=== PATIENT | female | born 1960 | race Caucasian/White ===

== ENCOUNTER 2016-12-06 15:07 | Emergency (ER) | payer MEDICARE, OTHER ==
[2016-12-06 16:19] VITALS: BMI 43.6
[2016-12-06 16:25] VITALS: RESP 18
--- NOTE | 2016-12-06 17:20 | C.PDOC ---
History Of Present Illness 56 y/o female, whose PMHx includes Arthritis, Back Problems (Chronic), and Osteoporosis, is sent to the ED by PMD for full evaluation s/p fall. Patient reports that she tripped and fell down two stairs, three days ago, and she is now complaining of pain to the left fourth and fifth finger and pain to the left hip. She states that at the time she felt dazed but she was able to walk. Notes that she is afraid to come to the hospital but her PMD told her to. Patient states the pain is worse with movement. Denies taking any OTC medication for pain. Denies any head injury, loss of consciousness, weakness, numbness, or other complaints. - HPI Time Seen by Provider: 12/06/16 17:04 Chief Complaint (Nursing): Back Pain History Per: Patient History/Exam Limitations: no limitations Onset/Duration Of Symptoms: Days (3), Sudden Onset, Persistent Injury Occurred (Timing): Days Ago: (3) Recent travel outside of the [place]: No Past Medical History Reviewed: Historical Data, Nursing Documentation, Vital Signs Vital Signs: Last Vital Signs Temp 98 F 12/06/16 16:19 Pulse 83 12/06/16 17:22 Resp 18 12/06/16 17:22 BP 124/82 12/06/16 17:22 Pulse Ox 96 12/06/16 17:44 - Medical History PMH: Anxiety, Arthritis, Asthma, Back Problems (Chronic), Bipolar Disorder, Depression, HTN, Osteoporosis, Seizures Surgical History: - [facility] Procedures INSPECTION OF LARYNX, ENDO (11/19/15) INTRODUCE OF OTH THERAP SUBST INTO RESP TRACT, VIA OPENING (11/19/15) INTRODUCTION OF ANTI-INFLAMMATORY INTO JOINTS, PERC APPROACH (01/28/16) INTRODUCTION OF SERUM/TOX/VACCINE INTO MUSCLE, PERC APPROACH (11/19/15) Family History: States: Unknown Family Hx - Social History Hx Tobacco Use: No Hx Alcohol Use: No Hx Substance Use: No - Immunization History Hx Tetanus Toxoid Vaccination: Yes Hx Influenza Vaccination: Yes Hx Pneumococcal Vaccination: Yes Review Of Systems Except As Marked, All Systems Reviewed And Found Negative. Musculoskeletal: Positive for: Other (left hip pain and left fourth and fifth finger pain) Neurological: Negative for: Weakness, Numbness, Other (LOC) Physical Exam - Physical Exam Appears: Non-toxic, No Acute Distress Skin: Warm, Dry Head: Atraumatic, Normacephalic Eye(s): bilateral: Normal Inspection, PERRL, EOMI Neck: Normal ROM, No Midline Cervical Tenderness, Supple Chest: Symmetrical, No Tenderness Cardiovascular: Rhythm Regular Respiratory: Normal Breath Sounds, No Rales, No Rhonchi, No Wheezing Gastrointestinal/Abdominal: Normal Exam, Soft, No Tenderness Back: Normal Inspection, No Vertebral Tenderness Extremity: Tenderness (mild soft tissue tenderness to left fourth and fifth fingers; no other tenderness to b/l upper or lower extremities), No Deformity, No Swelling, Other (ecchymosis to left fourth finger) Neurological/Psych: Oriented x3, Normal Speech, Normal Cognition, Normal Motor, Normal Sensation Gait: Other (limping due to left hip pain) ED Course And Treatment O2 Sat by Pulse Oximetry: 96 (ra) Pulse Ox Interpretation: Normal - Other Rad L HAND X-Ray: Interpreted by Me (NEG) L HIP X-Ray: Interpreted by Me (NEG) Medical Decision Making Medical Decision Making: Plan: * X-Ray, Left Hand * X-Ray, Left Hip * Naproxen PO Disposition Counseled Patient/Family Regarding: Studies Performed, Diagnosis, Need For Followup, Rx Given - Disposition Referrals: YOUR,PMD [Other] Disposition: HOME/ ROUTINE Disposition Time: 17:55 Condition: IMPROVED Prescriptions: Naproxen 500 mg PO BID #30 tab Instructions: Finger Sprain (ED), Hip Contusion (ED) - Clinical Impression Clinical Impression: Finger contusion, Contusion, hip, Finger sprain, Fall (on) (from) other stairs and steps, initial encounter - Scribe Statement The provider has reviewed the documentation as recorded by the Scribe (Renea Trent) Provider Attestation: All medical record entries made by the Scribe were at my direction and personally dictated by me. I have reviewed the chart and agree that the record accurately reflects my personal performance of the history, physical exam, medical decision making, and the department course for this patient. I have also personally directed, reviewed, and agree with the discharge instructions and disposition. Orthopedic Care Application Of:: Finger Splint
[2016-12-06] MEDS ORDERED: Naproxen 550 mg Tab PO STA (17:21)
[2016-12-06] MEDS ORDERED: Naproxen 550 mg Tab PO ONE (17:29)
[2016-12-06 18:12] VITALS: BP 148/92; PULSE 67; TEMP 98.2; O2SAT 99
--- NOTE | 2016-12-07 14:16 | RAD ---
PROCEDURE: Left Hand Radiographs. HISTORY: TRAUMA 4,5 FINGERS COMPARISON: None. FINDINGS: BONES: Bone alignment and mineralization are normal. There is no acute fracture or bone destruction. JOINTS: The joint spaces are preserved. SOFT TISSUES: Normal. OTHER FINDINGS: None. IMPRESSION: No acute fracture or dislocation.
--- NOTE | 2016-12-07 14:34 | RAD ---
PROCEDURE: Radiographs of the pelvis and left hip HISTORY: TRAUMA COMPARISON: 03/18/2014 TECHNIQUE: AP pelvis and frog-lateral view of the left hip were obtained FINDINGS: The pelvic ring is intact. There is no acute fracture or bone destruction the hip joint spaces are preserved. Both sacroiliac joints are normal. There is mild osteitis pubis. IMPRESSION: No acute fracture or dislocation.
== END 2016-12-06 18:29 | disposition home or self-care (01) ==
LOC: C.ER 15:07
DX: S63.615A Unspecified sprain of left ring finger, initial encounter (principal); S70.02XA Contusion of left hip, initial encounter; W10.9XXA Fall (on) (from) unspecified stairs and steps, initial encounter

== ENCOUNTER 2017-08-01 09:13 | Day surgery (SDC) | payer MEDICARE, OTHER ==
[2017-07-05 11:01] VITALS: BMI 47.5
[2017-08-01] MEDS ORDERED: Lactated Ringer's 1,000 ML IV ONE (12:08)
[2017-08-01] MEDS ORDERED: Midazolam 2 MG/2 ML VIAL ONE (12:17)
[2017-08-01] MEDS ORDERED: Propofol 10 mg/ml Inj (20 ML) ONE (12:17)
--- NOTE | 2017-08-01 12:43 | PCM.SURG1 ---
Surgeon's Initial Post Op Note - Surgeon's Notes Surgeon: Dr. Bustos [employer] Manager: None Type of Anesthesia: General LMA Anesthesia Administered By: Dr. Storm Pre-Operative Diagnosis: 57 yo with Stenotic os , Postmenopausal bleeding Operative Findings: AV uterus stenotic os Post-Operative Diagnosis: Same as above Operation Performed: Fractional D and C, attempted Hysteroscopy myosure Specimen/Specimens Removed: ECC,EMC Estimated Blood Loss: EBL {In ML}: 5 Blood Products Given: N/A Drains Used: No Drains Post-Op Condition: Good Date of Surgery/Procedure: 08/01/17 Time of Surgery/Procedure: 12:43
[2017-08-01] MEDS ORDERED: HYDROmorphone 0.5 mg/0.5 ml ISec IVP PRN (12:48)
[2017-08-01] MEDS ORDERED: HYDROmorphone 0.5 mg/0.5 ml ISec ONE (12:49)
[2017-08-01 14:15] VITALS: PULSE 82
[2017-08-01 14:50] VITALS: BP 114/72; RESP 14; TEMP 97; O2SAT 96
--- NOTE | 2017-08-01 23:24 | OP ---
PROCEDURE DATE: PREOPERATIVE DIAGNOSIS: A 57-year-old female with postmenopausal bleeding and stenotic os. POSTOPERATIVE DIAGNOSIS: A 57-year-old female with postmenopausal bleeding and stenotic os. PROCEDURE: Fractional dilatation and curettage, attempted hysteroscopy and MyoSure. SURGEON: Molly Bustos MD ANESTHESIA ADMINISTERED BY: Dr. Powers TYPE OF ANESTHESIA: General LMA. FINDINGS: An anteverted uterus noted to have a stenotic os, approximately 15 weeks of gestation. COMPLICATION: None. ESTIMATED BLOOD LOSS: 10 mL. IV FLUID INTAKE: 400 mL. SPECIMEN: EMC and ECC. DESCRIPTION OF PROCEDURE: The patient was informed of the risk factors, benefits, and alternative of the procedure. Risk factors included infection, bleeding, damages to surrounding organ and tissue, complications from anesthesia, and possible . After informed consent was obtained, she was then taken to the operating room, prepped and draped in normal sterile fashion, placed in dorsal lithotomy position. A weighted-speculum was placed into the vagina. The anterior lip of the cervix was grasped with a single-toothed tenaculum. The uterus was gently sounded to approximately, may be, 8 cm. Her os was really stenotic and extremely hard to go in. Due to that fact, the hysteroscopy and MyoSure were attempted, but unsuccessful. A fractional D and C was then performed, in which EMC and ECC were obtained and submitted to pathology. There was scant tissue. Upon completion, all instruments were removed from the vagina. Instruments and lap counts were correct x2. The patient was then taken to the recovery room in stable condition. Molly Bustos MD
== END 2017-08-01 16:12 | disposition home or self-care (01) ==
LOC: C.SDS 09:13
PROVIDERS: ATTEND Obstetrics & Gynecology
DX: N95.0 Postmenopausal bleeding (principal); N85.4 Malposition of uterus; N84.1 Polyp of cervix uteri; N85.00 Endometrial hyperplasia, unspecified
CPT/HCPCS: 58558; J1170; J2250; J2704; J3010; J7120

== ENCOUNTER 2018-08-08 19:00 | Emergency (ER) | payer MEDICARE, MEDICAID ==
[2018-08-08 19:00] VITALS: BMI 50.3
[2018-08-08] MEDS ORDERED: Sodium Chloride 0.9% 1,000 ML IV ONE (20:17)
--- NOTE | 2018-08-08 20:17 | C.PDOC ---
History Of Present Illness Patient presents to the ER with a complaint of nausea, vomiting, and diarrhea worsening over the last 7 days. Patient states everything she eats "runs though her" and she feels like her hands are spasming. Patient had a hysterectomy 4-5 months ago. Denies fever or chills. Time Seen by Provider: 08/08/18 19:59 Chief Complaint (Nursing): Abdominal Pain History Per: Patient History/Exam Limitations: no limitations Onset/Duration Of Symptoms: Days (7) Current Symptoms Are (Timing): Still Present Severity: Moderate Pain Scale Rating Of: 5 Quality Of Discomfort: Unable To Describe Associated Symptoms: Nausea, Vomiting, Diarrhea, Other (Hands spasming). denies: Fever, Chills Exacerbating Factors: None Alleviating Factors: None Recent travel outside of the [place]: No Abnormal Vaginal Bleeding: No Past Medical History Reviewed: Historical Data, Nursing Documentation, Vital Signs Vital Signs: Last Vital Signs Temp 98 F 08/08/18 19:06 Pulse 105 H 08/08/18 19:06 Resp 21 08/08/18 19:06 BP 123/86 08/08/18 19:06 Pulse Ox 99 08/08/18 19:06 - Medical History PMH: Anxiety, Arthritis (RA), Asthma, Back Problems (Chronic), Bipolar Disorder, COPD, Depression, HTN, Hypercholesterolemia, Osteoporosis, Peripheral Edema, Seizures Denies: CHF, Diabetes, Hepatitis, HIV, Hypothyroidism, Chronic Kidney Disease, Rheumatoid Arthritis Surgical History: Other Surgeries: Hysterectomy - [facility] Procedures INSPECTION OF LARYNX, ENDO (11/19/15) INTRODUCE OF OTH THERAP SUBST INTO RESP TRACT, VIA OPENING (11/19/15) INTRODUCTION OF ANTI-INFLAMMATORY INTO JOINTS, PERC APPROACH (01/28/16) INTRODUCTION OF SERUM/TOX/VACCINE INTO MUSCLE, PERC APPROACH (11/19/15) Family History: States: No Known Family Hx - Social History Hx Tobacco Use: No Hx Alcohol Use: No Hx Substance Use: No - Immunization History Hx Tetanus Toxoid Vaccination: Yes Hx Influenza Vaccination: No Hx Pneumococcal Vaccination: Yes Review Of Systems Constitutional: Negative for: Fever, Chills Cardiovascular: Negative for: Chest Pain, Palpitations Respiratory: Negative for: Cough, Shortness of Breath Gastrointestinal: Positive for: Nausea, Vomiting, Diarrhea Musculoskeletal: Positive for: Other (Hand spasming) Neurological: Negative for: Weakness, Numbness Physical Exam - Physical Exam Appears: Non-toxic Skin: Warm, Dry Head: Normacephalic Oral Mucosa: Moist Neck: Trachea Midline, Supple Chest: Symmetrical, No Tenderness Cardiovascular: Rhythm Regular Respiratory: No Rales, No Rhonchi, No Wheezing Gastrointestinal/Abdominal: Soft, No Tenderness, Other (Obese. Surgical scars clean, dry and well healed.) Back: No CVA Tenderness Extremity: Pedal Edema (Bilateral) Neurological/Psych: Oriented x3 ED Course And Treatment - Laboratory Results Result Diagrams: 08/08/18 20:45 08/08/18 20:45 ECG: Interpreted By Me, Viewed By Me ECG Rhythm: Sinus Rhythm (81), Nonspecific Changes O2 Sat by Pulse Oximetry: 99 (Room air) Pulse Ox Interpretation: Normal - Radiology CXR: Interpreted by Me, Viewed By Me Progress Note: EKG, blood work, and urinalysis ordered. IV fluids, protonix, zofran, and toradol administered. Disposition Counseled Patient/Family Regarding: Studies Performed, Diagnosis, Need For Followup, Rx Given - Disposition Referrals: Shamir Tee MD [Medical Doctor] - Disposition: HOME/ ROUTINE Disposition Time: 20:16 Condition: FAIR Additional Instructions: Please return if symptoms recur. Do take kaopectate for the diarrhea . Return in the morning for a leg doppler(ultrsaound ) test Prescriptions: Ondansetron ODT [Zofran ODT] 1 odt PO BID PRN #6 odt PRN Reason: Nausea/Vomiting Pantoprazole Sodium [Protonix] 40 mg PO DAILY #15 ect Instructions: Nausea and Vomiting, Adult (DC) Forms: [employer] (Fijian) - Clinical Impression Clinical Impression: Diarrhea, Nausea & vomiting, Leg pain - Scribe Statement The provider has reviewed the documentation as recorded by the Scribvadim Prather All medical record entries made by the Scribe were at my direction and personally dictated by me. I have reviewed the chart and agree that the record accurately reflects my personal performance of the history, physical exam, medical decision making, and the department course for this patient. I have also personally directed, reviewed, and agree with the discharge instructions and disposition.
[2018-08-08] MEDS ORDERED: Sodium Chloride 0.9% 1,000 ML ONE (20:43)
[2018-08-08 20:49] LABS: BASO # 0.1 K/uL (0.0-0.2); BASO % 0.8 % (0.0-2.0); EOS # 0.1 K/uL (0.0-0.7); EOS % 0.5 % (0.0-4.0); HEMOGLOBIN 13.8 g/dL (11.0-16.0); LYMPH # 2.8 K/uL (1.0-4.3); LYMPH % 27.7 % (20.0-40.0); MEAN CORPUSCULAR HEMOGLOBIN 29.2 pg (27.0-31.0); MEAN CORPUSCULAR HGB CONC 34.4 g/dL (33.0-37.0); MONO # 0.6 K/uL (0.0-0.8); MONO % 5.8 % (0.0-10.0); NEUT # 6.5 K/uL (1.8-7.0); NEUT % 65.2 % (50.0-75.0); RBC 4.73 Mil/uL (3.80-5.20); RED CELL DISTRIBUTION WIDTH 13.4 % (11.5-14.5)
[2018-08-08 20:49] LABS: SQUAMOUS EPITHIAL 2 /hpf (0-5); URINE BACTERIA RARE (<OCC); URINE BILIRUBIN NEGATIVE (NEGATIVE); URINE BLOOD NEGATIVE (NEGATIVE); URINE CLARITY Clear (Clear); URINE COLOR Yellow (YELLOW); URINE GLUCOSE (UA) NORMAL (Normal); URINE LEUKOCYTE ESTERASE NEG Leu/uL (Negative); URINE PROTEIN NEGATIVE (NEGATIVE); URINE UROBILINOGEN NORMAL mg/dL (0.2-1.0)
[2018-08-08 20:51] LABS: MEAN CELL VOLUME 84.8 fL (81.0-99.0)
[2018-08-08 20:56] LABS: INR 1.1; PROTHROMBIN TIME 12.2 SECONDS (9.7-12.2)
[2018-08-08 21:07] LABS: ALB/GLOB RATIO 1.2 (1.0-2.1); ALBUMIN 4.2 g/dL (3.5-5.0); ALT/SGPT 33 U/L (9-52); AST/SGOT 24 U/L (14-36); BLOOD UREA NITROGEN 15 mg/dL (7-17); CALCIUM 9.7 mg/dl (8.6-10.4); GFR NON-AFRICAN AMERICAN > 60; LIPASE 75 U/L (23-300)
[2018-08-08 21:15] LABS: B-TYPE NATRIURETIC PEPTIDE 43.4 pg/mL (0-900)
[2018-08-08] MEDS ORDERED: Enoxaparin 40 mg Syringe SC STA (22:30)
[2018-08-08] MEDS ORDERED: Enoxaparin 120 mg Syringe SC STA (22:42)
[2018-08-08 22:50] VITALS: BP 106/70; PULSE 83; RESP 17; TEMP 98.4; O2SAT 95
--- NOTE | 2018-08-10 07:27 | CARD ---
APPROVED REPORT Date of service: 08/08/2018 EKG Measurement Heart [id number] <Conclusion> Normal sinus rhythm Normal ECG
== END 2018-08-08 22:57 | disposition home or self-care (01) ==
LOC: C.ER 19:00
DX: R11.2 Nausea with vomiting, unspecified (principal); R19.7 Diarrhea, unspecified; M79.606 Pain in leg, unspecified
CPT/HCPCS: 80053; 81001; 83690; 83880; 85025; 85610; 85730; 93005; 96361; 96372; 96374; 96375; 99284; C9113; J1650; J1885; J2405; J7030

== ENCOUNTER 2018-08-19 00:20 | Emergency (ER) | payer MEDICARE, OTHER ==
[2018-08-19 00:21] VITALS: BMI 50.3
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
[2018-08-19 03:15] VITALS: BP 119/86; PULSE 86; RESP 16; TEMP 98.6
[2018-08-19 03:46] VITALS: O2SAT 96
== END 2018-08-19 03:15 | disposition home or self-care (01) ==
LOC: C.ER 00:20
DX: S00.83XA Contusion of other part of head, initial encounter (principal); Y04.0XXA Assault by unarmed brawl or fight, initial encounter; M54.9 Dorsalgia, unspecified
CPT/HCPCS: 96372; 99283; J1885

== ENCOUNTER 2018-08-28 18:26 | Emergency (ER) | payer MEDICARE, OTHER ==
[2018-08-28 18:26] VITALS: BMI 50.3
[2018-08-28 18:55] VITALS: TEMP 98.3
[2018-08-28] MEDS ORDERED: Sodium Chloride 0.9% 1,000 ML IV ONE (19:20)
--- NOTE | 2018-08-28 19:21 | C.PDOC ---
History Of Present Illness 58 year old female presents to the ER with a complaint of an intermittent headache for the past week. Patient has Hx of head injury a week ago, she injured the right temporal/parietal area. Denies nausea or vomiting. Chief Complaint (Nursing): Syncope History Per: Patient History/Exam Limitations: no limitations Onset/Duration Of Symptoms: Days, Intermittent Episodes Current Symptoms Are (Timing): Still Present Seizure Or Post-ictal Symptoms: None Recent travel outside of the [place]: No - Symptoms Of CVA Associated Symptoms: denies: Impaired Speech, Seizure Activity, New Vision Deficit(Left), New Vision Deficit(Right), Decreased Ability To Walk, New Confusion Past Medical History Reviewed: Historical Data, Nursing Documentation, Vital Signs Vital Signs: Last Vital Signs Temp 98.3 F 08/28/18 18:51 Pulse 92 H 08/28/18 18:51 Resp 18 08/28/18 18:51 BP 131/85 08/28/18 18:51 Pulse Ox 97 08/28/18 18:51 - Medical History PMH: Anxiety, Arthritis (RA), Asthma, Back Problems (Chronic), Bipolar Disorder, COPD, Depression, HTN, Hypercholesterolemia, Osteoporosis, Peripheral Edema, Seizures Denies: CHF, Diabetes, Hepatitis, HIV, Hypothyroidism, Chronic Kidney Disease, Rheumatoid Arthritis Surgical History: - [facility] Procedures INSPECTION OF LARYNX, ENDO (11/19/15) INTRODUCE OF OTH THERAP SUBST INTO RESP TRACT, VIA OPENING (11/19/15) INTRODUCTION OF ANTI-INFLAMMATORY INTO JOINTS, PERC APPROACH (01/28/16) INTRODUCTION OF SERUM/TOX/VACCINE INTO MUSCLE, PERC APPROACH (11/19/15) Family History: States: Unknown Family Hx - Social History Hx Tobacco Use: No Hx Alcohol Use: No Hx Substance Use: No - Immunization History Hx Tetanus Toxoid Vaccination: No Hx Influenza Vaccination: Yes Hx Pneumococcal Vaccination: No Review Of Systems Constitutional: Negative for: Fever, Chills Eyes: Negative for: Vision Change Cardiovascular: Negative for: Chest Pain, Palpitations Respiratory: Negative for: Cough, Shortness of Breath Gastrointestinal: Negative for: Nausea, Vomiting Neurological: Positive for: Headache. Negative for: Weakness, Numbness Physical Exam - Physical Exam Appears: Non-toxic, Other (Alert, conscious) Skin: Normal Color, Warm, Dry Head: Normacephalic, Other (Tenderness and soft tissue swelling of right supra auricular area) Eye(s): bilateral: Normal Inspection, PERRL, EOMI Ear(s): Bilateral: Normal Nose: Normal Oral Mucosa: Moist Neck: Normal, No Midline Cervical Tenderness, No Paracervical Tenderness, Supple Chest: Symmetrical, No Tenderness Cardiovascular: Rhythm Regular Respiratory: Normal Breath Sounds, No Rales, No Rhonchi, No Wheezing Gastrointestinal/Abdominal: Soft, No Tenderness Back: No Vertebral Tenderness, No Paraspinal Tenderness Extremity: Normal ROM (x4) Neurological/Psych: Oriented x3, Normal Speech, Normal Motor, Normal Sensation Gait: Steady ED Course And Treatment - Laboratory Results Result Diagrams: 08/28/18 19:30 08/28/18 19:30 O2 Sat by Pulse Oximetry: 97 (Room air) Pulse Ox Interpretation: Normal Progress Note: CT head, blood work, and urinalysis ordered. IV fluids and toradol administered. NIHSS Stroke Scale 2 - Date/Time Evaluation Performed Date Performed: 08/28/18 Time Performed: 19:21 When Was NIHSS Performed: Baseline - How Severe is the Stroke Level of Consciousness: 0=Alert LOC to Questions: 0=Both comments correct LOC to commands: 0=Obeys both correctly Best Gaze: 0=Normal Visual: 0=No visual loss Facial: 0=Normal Motor Arm - Left: 0=No drift Motor Arm - Right: 0=No drift Motor Leg - Left: 0=No drift Motor Leg - Right: 0=No drift Limb Ataxia: 0=Absent Sensory: 0=Normal Best Language: 0=No aphasia Dysarthia: 0=Normal articulation Extinction & Inattention (Neglect): 0=Normal, no object Score: 0 Disposition Counseled Patient/Family Regarding: Diagnosis - Disposition Referrals: [facility] [Outside] Disposition: HOME/ ROUTINE Disposition Time: 21:24 Condition: STABLE Prescriptions: Naproxen 375 mg PO TIDPC #14 tablet Instructions: Closed Head Injury, Headache, Child, Syncope (Fainting) (DC) Forms: [facility] (Gibraltarian) - POA Present On Arrival: None - Clinical Impression Clinical Impression: Syncope, Closed head injury, Headache - Scribe Statement The provider has reviewed the documentation as recorded by the Scribe Obdulio Prather All medical record entries made by the Scribe were at my direction and personally dictated by me. I have reviewed the chart and agree that the record accurately reflects my personal performance of the history, physical exam, medical decision making, and the department course for this patient. I have also personally directed, reviewed, and agree with the discharge instructions and disposition.
[2018-08-28 19:34] LABS: BASO # 0.1 K/uL (0.0-0.2); BASO % 0.9 % (0.0-2.0); EOS # 0.1 K/uL (0.0-0.7); EOS % 0.9 % (0.0-4.0); HEMOGLOBIN 13.1 g/dL (11.0-16.0); LYMPH # 2.8 K/uL (1.0-4.3); LYMPH % 31.4 % (20.0-40.0); MEAN CORPUSCULAR HEMOGLOBIN 28.9 pg (27.0-31.0); MEAN PLATELET VOLUME 8.6 fL (7.2-11.7); MONO # 0.5 K/uL (0.0-0.8); MONO % 6.2 % (0.0-10.0); NEUT # 5.4 K/uL (1.8-7.0); NEUT % 60.6 % (50.0-75.0); NRBC % 0.1 % (0.0-2.0); RBC 4.55 Mil/uL (3.80-5.20); RED CELL DISTRIBUTION WIDTH 13.7 % (11.5-14.5); WHITE BLOOD COUNT 8.8 K/uL (4.8-10.8)
[2018-08-28 19:57] LABS: ALB/GLOB RATIO 1.2 (1.0-2.1); ALT/SGPT 44 U/L (9-52); AST/SGOT 78 U/L (14-36); BLOOD UREA NITROGEN 24 mg/dL (7-17); CALCIUM 9.5 mg/dl (8.6-10.4); GFR NON-AFRICAN AMERICAN > 60
[2018-08-28 20:05] LABS: HCG,QUALITATIVE URINE NEGATIVE (NEGATIVE)
[2018-08-28 20:07] LABS: SQUAMOUS EPITHIAL 2 /hpf (0-5); URINE BACTERIA RARE (<OCC); URINE BILIRUBIN NEGATIVE (NEGATIVE); URINE BLOOD NEGATIVE (NEGATIVE); URINE CLARITY Clear (Clear); URINE COLOR Amber (YELLOW); URINE GLUCOSE (UA) NORMAL (Normal); URINE LEUKOCYTE ESTERASE NEG Leu/uL (Negative); URINE PROTEIN NEGATIVE (NEGATIVE); URINE UROBILINOGEN NORMAL mg/dL (0.2-1.0)
[2018-08-28 20:12] LABS: BARBITURATES, UR NEGATIVE (NEGATIVE); OPIATES, UR NEGATIVE (NEGATIVE); PHENCYCLIDINE, UR NEGATIVE (NEGATIVE)
[2018-08-28 20:19] LABS: BENZODIAZEPINES, UR POSITIVE (NEGATIVE)
[2018-08-28 21:18] VITALS: BP 120/68; PULSE 73; RESP 17
[2018-08-28 21:23] VITALS: O2SAT 97
--- NOTE | 2018-08-29 08:39 | CT ---
Date of service: 08/28/2018 PROCEDURE: CT HEAD WITHOUT CONTRAST. HISTORY: Headache COMPARISON: None available. TECHNIQUE: Axial computed tomography images were obtained through the head/brain without intravenous contrast. Radiation dose: Total exam DLP = 1088.37 mGy-cm. This CT exam was performed using one or more of the following dose reduction techniques: Automated exposure control, adjustment of the mA and/or kV according to patient size, and/or use of iterative reconstruction technique. FINDINGS: HEMORRHAGE: No intracranial hemorrhage. BRAIN: No mass effect or edema. No atrophy or chronic microvascular ischemic changes. 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 Calcified choroid plexi. VENTRICLES: Unremarkable. No hydrocephalus. CALVARIUM: Unremarkable. PARANASAL SINUSES: Unremarkable as visualized. No significant inflammatory changes. MASTOID AIR CELLS: Unremarkable as visualized. No inflammatory changes. OTHER FINDINGS: At the site of the external marker, there is some focal thickening of the adjacent musculature as demonstrated on series 2, image 12, nonspecific. Clinical correlation. IMPRESSION: No acute intracranial abnormality. 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 At the site of the external marker, there is some focal thickening of the adjacent musculature at the level of the right temporal region as demonstrated on series 2, image 12, nonspecific. Clinical correlation. If symptoms persists, consider correlation with MRI. A preliminary report was generated at 8:54 p.m. on 08/28/[address] Braulio Pickett from [facility].
--- NOTE | 2018-09-01 05:28 | CARD ---
APPROVED REPORT Date of service: 08/28/2018 EKG Measurement Heart [id number] <Conclusion> Normal sinus rhythm Possible Left atrial enlargement Borderline ECG
== END 2018-08-28 21:40 | disposition home or self-care (01) ==
LOC: C.ER 18:26
DX: S09.90XA Unspecified injury of head, initial encounter (principal); X58.XXXA Exposure to other specified factors, initial encounter; R55 Syncope and collapse; R51 Headache
CPT/HCPCS: 70450; 80053; 81001; 84484; 84703; 85025; 93005; 96361; 96374; 99285; G0480; J1885; J7030

== ENCOUNTER 2018-10-05 12:10 | Outpatient (CLI) | payer MEDICARE | END 2018-10-05 12:11 | disposition home or self-care (01) | LOC: C.LAB 12:10 | DX: M32.10 Systemic lupus erythematosus, organ or system involvement unspecified (principal); N39.0 Urinary tract infection, site not specified ==